=== PATIENT | female | born 1990 | race African-American/Black ===

== ENCOUNTER 2019-11-24 21:14 | Emergency (ER) | payer OTHER ==
[2019-11-24 21:19] VITALS: BP 125/77
[2019-11-24] MEDS ORDERED: Sulfamethox/Trimethoprim DS 800/160* TAB PO ONE (21:34)
--- NOTE | 2019-11-24 21:36 | ED ---
Lower Extremity - HPI Summary HPI Summary: Patient complains of pain, swelling and redness to the lateral right calf status post possible bug bite. Pain worse with walking and weightbearing. Symptoms started 2 days ago. Denies prior history of abscess. Denies fever, cough, sore throat, CP, SOB, N/3/D, abdominal pain, change in urine, change in BM. - History of Current Complaint Stated Complaint: RT LEG PAIN PER EMS Hx Obtained From: Patient Mechanism Of Injury: Unknown Onset of Pain: Immediate Onset/Duration: Days Severity Initially: Severe Severity Currently: Severe Pain Intensity: 8 Pain Scale Used: 0-10 Numeric Timing: Constant Location: Is Discrete @ Character Of Pain: Aching, Throbbing Associated Signs And Symptoms: Positive: Swelling, Redness Aggravating Factor(s): Standing, Ambulation, Weight Bearing Alleviating Factor(s): Rest, Elevation Able to Bear Weight: Yes - Allergies/Home Medications Allergies/Adverse Reactions: Allergies Allergy/AdvReac Type Severity Reaction Status Date / Time No Known Allergies Allergy Verified 11/24/19 21:19 PMH/Surg Hx/FS Hx/Imm Hx Endocrine/Hematology History: Denies: Hx Anticoagulant Therapy Cardiovascular History: Denies: Hx Pacemaker/ICD History: Denies: Hx Dialysis Sensory History: Denies: Hx Eye Prosthesis Opthamlomology History: Denies: Hx Legally Blind EENT History: Denies: Hx Deafness Infectious Disease History: No Infectious Disease History: Denies: Traveled Outside the [place] in Last 30 Days - Family History Known Family History: Positive: Non-Contributory - Social History Alcohol Use: None Substance Use Type: Reports: Marijuana Substance Use Comment - Amount & Last Used: daily Smoking Status (MU): Never Smoked Tobacco Review of Systems Constitutional: Negative Eyes: Negative ENT: Negative Cardiovascular: Negative Respiratory: Negative Gastrointestinal: Negative Genitourinary: Negative Musculoskeletal: Negative Skin: Other Neurological: Negative Psychological: Normal All Other Systems Reviewed And Are Negative: Yes Physical Exam Triage Information Reviewed: Yes Vital Signs On Initial Exam: Initial Vitals Temp Pulse Resp BP Pulse Ox 97.8 F 100 14 125/77 96 11/24/19 21:17 11/24/19 21:17 11/24/19 21:17 11/24/19 21:17 11/24/19 21:17 Vital Signs Reviewed: Yes Appearance: Positive: Well-Appearing Skin: Positive: Warm Head/Face: Positive: Normal Head/Face Inspection Eyes: Positive: Normal Neck: Positive: Supple Respiratory/Lung Sounds: Positive: Clear to Auscultation Cardiovascular: Positive: Normal Abdomen Description: Positive: Nontender Musculoskeletal: Positive: Normal Neurological: Positive: Normal Psychiatric: Positive: Normal AVPU Assessment: Alert - [place] Coma Scale Best Eye Response: 4 - Spontaneous Best Motor Response: 6 - Obeys Commands Best Verbal Response: 5 - Oriented Coma Scale Total: 15 Procedures - Sedation Patient Received Moderate/Deep Sedation with Procedure: No - Incision and Drainage 1 Site: lateral right calf Anesthesia: Other - no anesthetic used Instrument(s): Scalpel Diagnostics - Vital Signs Vital Signs Temp Pulse Resp BP Pulse Ox 11/24/19 21:17 97.8 F 100 14 125/77 96 - Laboratory Lab Statement: Any lab studies that have been ordered have been reviewed, and results considered in the medical decision making process. Lower Extremity Course/Dx - Course Course Of Treatment: Patient complains of pain, swelling and redness to the lateral right calf status post possible bug bite. Pain worse with walking and weightbearing. Symptoms started 2 days ago. Denies prior history of abscess. Denies fever, cough, sore throat, CP, SOB, N/3/D, abdominal pain, change in urine, change in BM. Vital signs within normal limits. I and D performed. Antibiotics - Diagnoses Provider Diagnoses: Abscess of leg, right Discharge ED - Sign-Out/Discharge Documenting (check all that apply): Patient Departure - Discharge Plan Condition: Stable Disposition: HOME Prescriptions: Sulfamethox/Trimethoprim DS* [Bactrim DS 800/160 TAB*] 1 tab PO BID 10 Days #20 tab Patient Education Materials: Abscess (ED) Referrals: [facility], [Primary Care Provider] - Additional Instructions: Keep wound clean and dry and protected. Take antibiotics twice a day as directed. Return to the ED for any new or worsening symptoms. - Billing Disposition and Condition Condition: STABLE Disposition: Home
== END 2019-11-24 22:01 | disposition home or self-care (01) ==
LOC: ED 21:14
DX: L02.415 Cutaneous abscess of right lower limb (principal)
CPT/HCPCS: 10060; 99282; A9270-GY